=== PATIENT | female | born 1950 | race Caucasian/White ===

== ENCOUNTER 2022-12-09 16:42 | Emergency (ER) | payer MEDICARE ==
[~2022-12-09] VITALS: Ht 162.6 cm; Wt 49.1 kg
[~2022-12-09 16:42] MED LIST: NO HOME MEDS; ONDA4TAB12 PO
[2022-12-09 17:34] VITALS: BP 108/70; PULSE 108; RESP 14; TEMP 99.6; O2SAT 96
[2022-12-09] MEDS ORDERED: ondansetron 4mg rapidly disintigrating tab PO ONE (18:30)
[2022-12-09] MEDS ORDERED: morphine 10mg/ml inj. IM ONE (18:30)
== END 2022-12-09 21:07 | disposition home or self-care (01) ==
LOC: ER 16:44
DX: S82.142A Displaced bicondylar fracture of left tibia, initial encounter for closed fracture (principal); Z88.1 Allergy status to other antibiotic agents; Z79.899 Other long term (current) drug therapy; X58.XXXA Exposure to other specified factors, initial encounter; Y93.89 Activity, other specified; Y92.89 Other specified places as the place of occurrence of the external cause; Y99.8 Other external cause status
CPT/HCPCS: 29505; 73564; 73700; 99284

== ENCOUNTER 2023-07-05 11:59 | Emergency (ER) | payer MEDICARE ==
[~2023-07-05] VITALS: Ht 160 cm; Wt 50.0 kg
[2023-07-05] MEDS ORDERED: NAPR-56 PO (13:18)
[2023-07-05 13:27] VITALS: BP 115/66; PULSE 75; RESP 16; TEMP 98; O2SAT 98
== END 2023-07-05 13:30 | disposition home or self-care (01) ==
LOC: ER 12:00
DX: S93.401A Sprain of unspecified ligament of right ankle, initial encounter (principal); Z88.1 Allergy status to other antibiotic agents; W01.0XXA Fall on same level from slipping, tripping and stumbling without subsequent striking against object, initial encounter; Y93.89 Activity, other specified; Y92.89 Other specified places as the place of occurrence of the external cause; Y99.8 Other external cause status
CPT/HCPCS: 73610; 99284

== ENCOUNTER 2024-04-01 12:03 | Emergency (ER) | payer MEDICARE ==
[~2024-04-01] VITALS: Ht 162.6 cm; Wt 51.2 kg
[~2024-04-01 12:03] MED LIST changes: +ONDA-243 PO; -ONDA4TAB12 PO
[2024-04-01 12:22] VITALS: TEMP 99
[2024-04-01 13:38] VITALS: PULSE 76; RESP 16; O2SAT 95
[2024-04-01 14:31] VITALS: BP 123/71
== END 2024-04-01 14:34 | disposition home or self-care (01) ==
LOC: ER 12:03
DX: S42.024A Nondisplaced fracture of shaft of right clavicle, initial encounter for closed fracture (principal); S82.091A Other fracture of right patella, initial encounter for closed fracture; Z88.8 Allergy status to other drugs, medicaments and biological substances; W19.XXXA Unspecified fall, initial encounter; Y93.89 Activity, other specified; Y92.89 Other specified places as the place of occurrence of the external cause; Y99.8 Other external cause status
CPT/HCPCS: 29505; 73030; 73564; 99284; A4565